=== PATIENT | male | born 1955 | race Caucasian/White ===

== ENCOUNTER → 2023-08-25 10:11 | Outpatient (REF) | payer MEDICARE, BC, SELFPAY | LOC: HWCARD 10:11 | PROVIDERS: ATTENDING PHYSICIAN Family Medicine | DX: I10 Essential (primary) hypertension (principal); R00.1 Bradycardia, unspecified; I49.9 Cardiac arrhythmia, unspecified | CPT/HCPCS: 93005 ==

== ENCOUNTER → 2023-09-13 11:40 | Outpatient (REF) | payer MEDICARE, BC, SELFPAY | LOC: DHCBC/DCA 11:40 | PROVIDERS: ATTENDING PHYSICIAN Internal Medicine Cardiovascular Disease; FAMILY PHYSICIAN Family Medicine | DX: R55 Syncope and collapse (principal); R94.31 Abnormal electrocardiogram [ECG] [EKG] | CPT/HCPCS: 78452; 93017; A9500; J2785 ==

== ENCOUNTER 2024-09-26 04:48 | Emergency (ER) | payer MEDICARE, BC, SELFPAY ==
[2024-09-26 04:52] VITALS: BP 150/80
--- NOTE | 2024-09-26 06:20 | ED.GENMED ---
History of Present Illness
General
Chief Complaint: Back Pain
Source: patient
Exam Limitations: none
Time Seen by Provider: 09/26/24 06:05
History of Present Illness
History of Present Illness:
See MDM
Past History
Past History
ED Past Medical History: CVA (cardiac source of embolism (unknown cause)), HTN and Other (Multiple episodes of diverticulitis, kidney stones, Migraines, embolic CVA)
ED Past Surgical History: Bowel resection (for diverticulitis)
Social History
Tobacco: Former smoker
Alcohol: Occasional
Drug: None
Personal:
Living: with family
Employment: Employed
Family History
Family History: Other (Mother and grandparent with stoke in there 60's.)
Phy Exam
Physical Exam
Physical Exam:
See MDM
Course
Orders/Labs/Results
Orders:
Orders
09/26/24 06:15
Oxycodone/Acetaminophen [Percocet 5/325] 1 tablet PO NOW STA
Lumbar Spine Complete, 4 View [CR Lumbar Spine Comp Min 4 Vw*] Urgent
Comment:
Reason For Exam: fall, lower back pain
Vital Signs
Initial and Last Documented VS:
Initial Vital Signs
Temp Pulse Resp BP Pulse Ox
97.6 F 78 20 150/80 97
09/26/24 04:52 09/26/24 04:52 09/26/24 04:52 09/26/24 04:52 09/26/24 04:52
Last Documented Vital Signs
Temp Pulse Resp BP Pulse Ox
97.6 F 79 18 139/57 96
09/26/24 04:52 09/26/24 06:28 09/26/24 06:28 09/26/24 06:28 09/26/24 06:28
MDM/Problems Addressed
Differential Diagnosis Includes:
HPI and MDM Narrative:
69-year-old male presenting with back pain. Patient slipped off the ladder last night and hit his back. He denies head trauma. He is on Coumadin and states his INR was 2.3 last week. He took Tylenol and Flexeril yesterday with minimal to no
relief. On exam, he does have tenderness to paralumbar musculature bilaterally. No bruising or ecchymosis noted. He denies inability to walk. Denies numbness or tingling down his legs and denies trouble with urination or defecation. Given the
trauma, will obtain x-ray. Given minimal relief with Flexeril, will give dose of Percocet
Physical exam
General: Mildly uncomfortable but nontoxic-appearing
HEENT: protecting airway
Neck: appears supple
CV: No evidence of cyanosis
Resp: No accessory muscle use
Back: Mild paralumbar muscular tenderness. Very mild midline tenderness. No ecchymosis or bruising
Abd: Non-distended
Extremities: No deformities
Neuro: alert
Psych: Normal affect
Skin: Intact
Problems Addressed including Acute and Chronic Conditions affecting care:
1. Low back pain
Acuity: acute
Prognosis: stable
Details: Given the trauma, will obtain x-ray. No red flags suggest spinal cord involvement
Updates
X-ray consistent with L1 compression fracture. On reassessment after Percocet, patient states is feeling much better going home. Discussed follow-up with orthopedics and pain management
Patient understands opiate related constipation issues and will take stool softeners.
Differential Diagnosis (but not limited to): Back spasm, lumbar fracture, back contusion
Testing considered: Lumbar CT
Drug therapy (if applicable): OTC meds, please see d/c instruction regarding Rx drugs
Amount and/or Complexity of Data Reviewed
Clinical info obtained from: Patient
External data reviewed: N/A
Labs I independently reviewed (but not limited to): N/A
Radiology: X-ray independently reviewed: Lumbar x-ray consistent with L1 compression fracture
Pulse Ox: not hypoxic
EKG independently reviewed: N/A
Pouncing Machine Operator: N/A
Critical Care: N/A
Risk of Complication:
Social Determinants of health: Good social support
Discussed with other providers: N/A
Escalation of Care includes Admit/Obs: After being observed in the Emergency Department, pt stable for discharge.
Occasional wrong word or 'sound a like' substitutions may have occurred due to the inherent limitations of voice recognition software. Read the chart carefully and recognize, using context, where substitutions have occurred.
*Critical Care Note
Total Time (30-74mins, 75-104mins- exclusive of procedures): Not Applicable
ED Attending Note
-
Portions of this chart may have been created with voice recognition software.� Occasional wrong word or��sound alike� substitutions may have occurred due to the inherent limitations of voice recognition software.
Discharge Plan
Departure
Patient Disposition: Home (Routine Discharge)
Date of Disposition: 09/26/24
Time of Disposition: 08:27
Patient with high blood pressure during this ER visit?: No
Discharge Problem:
Compression fx, lumbar spine
Instructions: Vertebral Compression Fracture ED
Prescriptions:
New
oxycodone-acetaminophen [Percocet] 5-325 mg Tablet
1 tab PO Q6HPRN PRN (Reason: pain) Qty: 14 0RF
No Action
losartan 50 MG tablet
50 mg PO DAILY
venlafaxine 75 MG capsule,extended release 24hr
75 mg PO DAILY
acetaminophen 325 MG tablet
650 mg PO Q4HPRN PRN (Reason: headache)
atorvastatin 20 MG tablet
20 mg PO QPM Qty: 30 0RF
warfarin [Jantoven] 10 MG tablet
10 mg PO DAILY Qty: 0 0RF
Patient Comments:
Pt takes 10mg 5 days per week. Days are Mon, Tues, Thurs, Fri, Sat.
Pt takes 14mg 2 days per week. Days are Wed and Wed
Warfarin
14 mg PO Daily
Referrals:
Regla Carbone CRNP [Family Provider] -
Asa Ponce, DO [Non-Admitting Privileges] -
Activity Restrictions/Additional Instructions:
Please return for any worsening symptoms.
You may return at any time if you have further concerns.
Please follow up with your doctor at the first available appointment, preferably this week.
Please make an appointment to see the orthopedic pain management doctor.
Thank you for choosing [facility].
Interventions
Interventions:
*Risk Screen - Suicide Last Done: 09/26/24 04:52
*General Assessment Last Done: 09/26/24 06:16
*Neglect/Abuse Screening Last Done: 09/26/24 04:52
*ED- Fall Risk Assessment Last Done: 09/26/24 06:10
*ED COVID-19 Vaccine History Last Done: 09/26/24 06:10
ED-Musculoskeletal Assessment Last Done: 09/26/24 06:16
Discharge Date and Time
Print Language: SWAZI
[2024-09-26] MEDS: PERCOCET 5/325 1 TABLET PO (06:22)
[2024-09-26 06:26] VITALS: BMI 32.4
[2024-09-26 06:28] VITALS: BP 139/57
[2024-09-26 08:41] VITALS: BP 146/68
== END 2024-09-26 09:02 | disposition home or self-care (01) ==
LOC: EMR 04:48
PROVIDERS: EMERGENCY PHYSICIAN Student in an Organized Health Care Education/Training Program; FAMILY PHYSICIAN Nurse Practitioner Family
DX: S32.018A Other fracture of first lumbar vertebra, initial encounter for closed fracture (principal); W19.XXXA Unspecified fall, initial encounter; I10 Essential (primary) hypertension; Z86.73 Personal history of transient ischemic attack (TIA), and cerebral infarction without residual deficits; Z87.891 Personal history of nicotine dependence
CPT/HCPCS: 99283; 72110

== ENCOUNTER → 2024-10-04 13:03 | Outpatient (REF) | payer MEDICARE, BC, SELFPAY | LOC: PAVMRI 13:03 | PROVIDERS: ATTENDING PHYSICIAN Physical Medicine & Rehabilitation; FAMILY PHYSICIAN Nurse Practitioner Family | DX: M54.16 Radiculopathy, lumbar region (principal) | CPT/HCPCS: 72148 ==

== ENCOUNTER → 2025-02-06 06:54 | Outpatient (REF) | payer MEDICARE, BC, SELFPAY | LOC: MRI 06:54 | PROVIDERS: ATTENDING PHYSICIAN Physician Assistant; FAMILY PHYSICIAN Nurse Practitioner Family | DX: S32.010D Wedge compression fracture of first lumbar vertebra, subsequent encounter for fracture with routine healing (principal); M54.16 Radiculopathy, lumbar region | CPT/HCPCS: 72148 ==

== ENCOUNTER → 2025-04-24 08:44 | Outpatient (REF) | payer MEDICARE, BC, SELFPAY | LOC: RAD 08:44 | PROVIDERS: ATTENDING PHYSICIAN Physician Assistant | DX: S32.010G Wedge compression fracture of first lumbar vertebra, subsequent encounter for fracture with delayed healing (principal) | CPT/HCPCS: 77080 ==